=== PATIENT | female | born 1985 | race American Indian/Alaskan Native ===

== ENCOUNTER 2019-03-17 11:27 | Day surgery (SDC) | payer MEDICAID, OTHER ==
[~2019-03-17 11:27] MED LIST: METHERGINE IM ONE
[2019-03-17] MEDS ORDERED: LACTATED RINGERS 1,000 ML IV SCH (12:00)
--- NOTE | 2019-03-17 14:19 | Short Stay Summary ---
Short Stay Documentation Date of service: 03/17/19 Narrative H&P: 33y/o @ weeks presents with findings of an embryonic demise. She denies vaginal bleeding but has had pelvic cramping. She has not passed any tissue. The patient desires surgical management of her demise. - History Principal diagnosis: Embryonic demise Past Medical History: other (hydrosalpinx; fibroids) Past Surgical History: No surgical history Social history: - Allergies and Medications Current Medications: Allergies No Known Allergies Allergy (Verified 10/14/16 20:01) Home Medications Medication Instructions Recorded Confirmed Last Taken Type Ondansetron [Zofran Odt] 4 mg PO Q8HR PRN #15 tab.rapdis 04/03/16 10/20/16 Unknown Rx Ibuprofen [Motrin 800 MG tab] 800 mg PO Q8HR PRN #30 tablet 10/20/16 Unknown Rx Lidocain2.5%/Prilocai2.5% [Emla] 5 gm TP ONCE PRN #1 tube 10/20/16 Unknown Rx Docusate Sodium [Colace] 100 mg PO BID PRN #60 capsule 10/21/16 Unknown Rx Ferrous Sulfate [Feosol 325 MG tab] 325 mg PO BID #60 tablet 10/21/16 Unknown Rx - Physical exam General appearance: no acute distress Integumentary: no rash HEENT: Atraumatic Lungs: Clear to auscultation Breasts: deferred Heart: Regular rate Gastrointestinal: normal Female Genitourinary: deferred Rectal Exam: deferred Extremities: no ischemia Neurological: Normal gait - Brief post op/procedure progress note Date of procedure: 03/17/19 Pre-op diagnosis: embryonic demise Post-op diagnosis: same Procedure: Suction dilatation and evacuation Anesthesia: GETA Surgeon: CLARE SNOWDEN Estimated blood loss: other (600ml) Pathology: list (products of conception) Specimen disposition: to lab Condition: stable - Hospital course Hospital course: The patient was admitted the day of surgery and underwent a suction dilatation and evacuation. Please see operative note for details of surgery. Her postoperative course was uneventful. - Disposition Condition at discharge: Good Disposition: DC-[id number] TO HOME OR SELFCARE Short Stay Discharge Plan Activity: other (pelvic rest for 2 weeks) Diet: regular Additional Instructions: Scheduled follow-up with Dr. Snowden in 2 weeks Prescriptions: Ibuprofen [Motrin] 800 mg PO Q8HR PRN #60 tablet PRN Reason: Pain, Mild (1-3) oxyCODONE /ACETAMINOPHEN [Percocet 5/325] 1 tab PO Q6HR PRN #20 tablet PRN Reason: Pain
[2019-03-17] MEDS ORDERED: ANCEF/STERILE WATER 2 GM/20 ML IV NR (15:00)
[2019-03-17] MEDS ORDERED: SILVER NITRATE TP ONE (15:13)
[2019-03-17] MEDS ORDERED: METHERGINE IM ONE (15:13)
[2019-03-17] MEDS ORDERED: VERSED ONE (15:28)
[2019-03-17] MEDS ORDERED: DIPRIVAN 10 MG/ML IV ONE (15:28)
[2019-03-17] MEDS ORDERED: SUBLIMAZE ONE (15:28)
--- NOTE | 2019-03-17 16:20 | Operative Report ---
Operative Report Operative Report: Date of surgery: 03/17/2019 Preoperative diagnosis: Missed Postoperative diagnosis: Same as above Procedure: Suction dilatation and evacuation Surgeon: Kylee Smith M.D. Anesthesia: Gen. endotracheal anesthesia Estimated blood loss: 600 mL Findings: Products of conception Indication: 33-year-old at approximately 10 weeks estimated gestational age with findings of an embryonic demise. Procedure: The patient was taken to the operating room and given general endotracheal anesthesia without complication. The patient is prepped and draped in a normal sterile fashion. A bivalve speculum was placed in the patient's vagina and a single-tooth tenaculums placed on the anterior lip of the cervix. The uterine cavity was then sounded. The cervical os was then dilated with graduated dilators. A number 10 [place] curved cannula was placed to suction and found to be adequate. The cannula was then gently inserted into the dilated cervical os. Evacuation of the uterine contents were performed. Sharp curettage and endometrial surface was performed until cry was achieved. The cannula was then gently reinserted into the uterine cavity to evacuate any additional contents. After removal of the cannula there was no evidence of any active bleeding. The vaginal instruments were then removed atraumatically. The patient was then successfully extubated and taken to the recovery room in stable condition. All sponge laps and needle counts were correct 2. Pathology consis selma of products of conception.
[2019-03-17] MEDS ORDERED: ZOFRAN ONE (16:26)
[2019-03-17] MEDS ORDERED: NEO SYNEPHRINE/NS Syringe(OR USE) IV ONE (16:26)
[2019-03-17] MEDS ORDERED: XYLOCAINE MPF 2% ONE (16:26)
[2019-03-17] MEDS ORDERED: DECADRON ONE (16:26)
[2019-03-17] MEDS ORDERED: DILAUDID ONE (16:34)
[2019-03-17] MEDS: DILAUDID IV PRN ×2 (16:35→16:45)
[2019-03-17] MEDS ORDERED: ZOFRAN IV PRN (16:44)
--- NOTE | 2019-03-17 16:57 | Anesthesia Day of Surgery ---
Anesthesia Day of Surgery - Day of Surgery Patient Examined: Yes Patient H&P Reviewed: Yes Patient is NPO: Yes
--- NOTE | 2019-03-17 16:57 | Anesthesia Consultation ---
Anesthesia Consult and Med Hx - Airway Anesthetic Teeth Evaluation: Good ROM Head & Neck: Adequate Mental/Hyoid Distance: Adequate Mallampati Class: Class I Intubation Access Assessment: Good - Pulmonary Exam CTA: Yes - Cardiac Exam Cardiac Exam: RRR - Pre-Operative Health Status ASA Pre-Surgery Classification: ASA1 Proposed Anesthetic Plan: General - Pulmonary Hx Smoking: No Hx Asthma: No Hx Respiratory Symptoms: No COPD: No Hx Pneumonia: No - Cardiovascular System Hx Hypertension: No - Central Nervous System Hx Seizures: No Hx Psychiatric Problems: No - Endocrine Hx Renal Disease: No Hx End Stage Renal Disease: No Hx Hypothyroidism: No Hx Hyperthyroidism: No - Hematic Hx Anemia: No Hx Sickle Cell Disease: No - Other Systems Hx Alcohol Use: No
--- NOTE | 2019-03-17 16:58 | Post Anesthesia Evaluation ---
- Post Anesthesia Evaluation Patient Participated: Yes Airway Patent: Yes Stable Respiratory Function: Yes Nausea/Vomiting: No Temp > 96.8F: Yes Pain Manageable: Yes Adequeate Hydration: Yes Anesthesia Complications: No Block Receding Appropriately: Not Applicable Patient on Ventilator: No
[2019-03-17 17:35] VITALS: BP 124/81
[2019-03-17] MEDS ORDERED: PERCOCET 5/325 PO ONE (17:42)
[2019-03-17 17:43] LABS: Basophils % (Auto) 0.4 % (0.0-1.8); Eosinophils # (Auto) 0.4 K/mm3 (0.0-0.4); Eosinophils % (Auto) 3.3 % (0.0-4.3); Hematocrit 32.2 % (30.3-42.9); Hemoglobin 10.4 gm/dl (10.1-14.3); Lymphocytes # (Auto) 1.2 K/mm3 (1.2-5.4); Lymphocytes % (Auto) 10.1 % (13.4-35.0); Mean Corpuscular HGB Conc 32 % (30-34); Mean Corpuscular Volume 78 fl (79-97); Monocytes # (Auto) 0.3 K/mm3 (0.0-0.8); Monocytes % (Auto) 2.7 % (0.0-7.3); Platelet Count 270 K/mm3 (140-440); Red Blood Count 4.13 M/mm3 (3.65-5.03); Red Cell Distribution Width 15.7 % (13.2-15.2)
== END 2019-03-17 18:30 | disposition home or self-care (01) ==
LOC: OR 11:27
PROVIDERS: ATTEND Obstetrics & Gynecology
DX: O02.1 Missed abortion (principal); Z79.899 Other long term (current) drug therapy
CPT/HCPCS: 36415; 59820; 85025; 86850; 86900; 86901; 88305; J1100; J1170; J2210; J2250; J2370; J2405; J2704; J3010; J7120